=== PATIENT | female | born 1975 | race Hispanic/Latino ===

== ENCOUNTER 2022-02-12 07:49 | Emergency (ER) | payer SELFPAY ==
[2022-02-12] MEDS ORDERED: Ketorolac Tromethamine 30 MG/ML VIAL ONE (08:53)
== END 2022-02-12 09:03 | disposition home or self-care (01) ==
LOC: ERS 07:49
DX: M54.50 Low back pain, unspecified (principal); Z79.899 Other long term (current) drug therapy
CPT/HCPCS: 96372; 99283; J1885